=== PATIENT | male | born 1985 | race Caucasian/White ===

== ENCOUNTER 2022-06-03 11:53 | Emergency (ER) | payer OTHER ==
[2022-06-03] MEDS ORDERED: Dexamethasone 4 MG TAB ONE (12:36)
[2022-06-03] MEDS ORDERED: Acetaminophen 500 MG TAB ONE (12:36)
== END 2022-06-03 12:44 ==
LOC: NAV ERS 11:53
DX: M25.511 Pain in right shoulder (principal); I10 Essential (primary) hypertension; E11.9 Type 2 diabetes mellitus without complications; Z79.899 Other long term (current) drug therapy; Z79.84 Long term (current) use of oral hypoglycemic drugs; Z71.1 Person with feared health complaint in whom no diagnosis is made
CPT/HCPCS: J8540

== ENCOUNTER 2023-10-01 16:46 | Emergency (ER) | payer OTHER | END 2023-10-01 18:19 | LOC: NAV ERS 16:46 | DX: M25.511 Pain in right shoulder (principal); I10 Essential (primary) hypertension; E11.9 Type 2 diabetes mellitus without complications; Z79.899 Other long term (current) drug therapy; Z79.84 Long term (current) use of oral hypoglycemic drugs ==